=== PATIENT | female | born 1955 ===

== ENCOUNTER 2021-02-15 17:20 | Emergency (ER) | payer OTHER ==
[~2021-02-15] VITALS: Ht 160 cm; Wt 69.9 kg
[2021-02-15 17:33] VITALS: BP 140/83
--- NOTE | 2021-02-15 19:19 | NUR ---
SCOOTER SWAB COLLECTED AND WALKED TO LAB.
--- NOTE | 2021-02-15 21:29 | NUR ---
Patient discharged with v/s stable. Written and verbal after care instructions given ABOUT VIRAL ILLNESS and explained. Patient verbalized understanding. Ambulatory with steady gait. All questions addressed prior to discharge. Advised to follow up with PMD.
== END 2021-02-15 21:27 | disposition home or self-care (01) ==
LOC: MED 17:20
DX: M79.10 Myalgia, unspecified site (principal); Z20.822 Contact with and (suspected) exposure to COVID-19; R53.83 Other fatigue; R51.9 Headache, unspecified; E07.9 Disorder of thyroid, unspecified
CPT/HCPCS: 99283